=== PATIENT | female | born 1975 | race Caucasian/White ===

== ENCOUNTER 2022-11-08 09:35 | Day surgery (SDC) | payer BC ==
[2022-11-01 15:32] LABS: BASOPHILS % (AUTO) 0.3 % (0-1); EOSINOPHILS % (AUTO) 0.6 % (0-6); LYMPHOCYTES # (AUTO) 2.1 X10'3 (1.1-4.8); LYMPHOCYTES % (AUTO) 29.1 % (21-51); MEAN CORPUSCULAR HEMOGLOBIN 26.9 PG (27.0-31.0); MEAN CORPUSCULAR HGB CONC 33.8 g/dL (33.0-36.5); MEAN CORPUSCULAR VOLUME 79.6 FL (78-98); MEAN PLATELET VOLUME 9.1 FL (7.4-10.4); MONOCYTES # (AUTO) 0.5 X10'3 (0-0.9); MONOCYTES % (AUTO) 7.5 % (2-12); NEUTROPHILS # (AUTO) 4.6 X10'3 (1.8-7.7); NEUTROPHILS % (AUTO) 62.5 % (42-75); PRE OP HEMATOCRIT 45.6 % (35.0-45.0); PRE OP HEMOGLOBIN 15.4 g/dL (12.0-16.0); PRE OP PLATELET COUNT 243 X10'3 (140-440); RED BLOOD COUNT 5.74 X10'6 (4.20-5.60); RED CELL DISTRIBUTION WIDTH 13.4 % (11.5-14.5)
[2022-11-01 15:43] LABS: HCG SERUM QL NEGATIVE
[2022-11-01 15:53] LABS: ALBUMIN 3.9 G/DL (3.4-5.0); ALBUMIN/GLOBULIN RATIO 1.1 (1.1-1.5); ALKALINE PHOSPHATASE 59 IU/L (46-116); BLOOD UREA NITROGEN 24 MG/DL (7-18); BUN/CREATININE RATIO 20.7 (10.0-20.0); CALCIUM 9.3 MG/DL (8.5-10.1); CHLORIDE 104 MMOL/L (99-107); CREATININE 1.16 MG/DL (0.40-0.90); PRE OP ALT 19 U/L (30-65); PRE OP ANION GAP 10 (8-16); PRE OP AST 14 U/L (10-37); PRE OP BILIRUB, TOTAL 0.4 MG/DL (0.0-1.0); PRE OP GLUCOSE 120 MG/DL (70-104); PRE OP POTASSIUM 4.2 MMOL/L (3.4-5.1); PRE OP SODIUM 140 MMOL/L (135-145); TOTAL CARBON DIOXIDE 26.3 MMOL/L (24-32); TOTAL PROTEIN 7.3 G/DL (6.4-8.2); eGFR 50 ML/MIN
[2022-11-08] VITALS (13 sets, daily range): BP systolic 131–162; BP diastolic 82–98; PULSE 62–102; RESP 16–25; TEMP 97–97.7; O2SAT 62–100
[~2022-11-08] VITALS: Ht 175.3 cm; Wt 98.3 kg
[~2022-11-08 09:35] MED LIST: DAPA10TA PO; MEDR10TA10 PO; NORE0.3520 PO; TIRZ2.5P SQ; WARF-55 PO; famotidine 20mg tablet PO ONE; ringers solution, lacted 1,000 ML IV SCH
[2022-11-08 10:18] LABS: PREOP URINE HCG NEGATIVE (NEGATIVE)
[2022-11-08] MEDS ORDERED: acetaminophen 1,000mg/100ml IV 100 ML IV PRN ×2 (11:55)
[2022-11-08] MEDS ORDERED: hydrALAZINE 20mg/ml inj. IV PRN ×3 (11:55→14:25)
[2022-11-08] MEDS ORDERED: ondansetron/PF 4mg/2ml inj IV PRN ×3 (11:55→14:25)
[2022-11-08] MEDS ORDERED: fentaNYL/PF 50MCG/1 ML 2ML syringe IV PRN ×4 (11:55→14:25)
[2022-11-08] MEDS ORDERED: ringers solution, lacted 1,000 ML IV SCH ×3 (11:55→14:25)
[2022-11-08] MEDS ORDERED: meperidine/PF 25mg/ml syringe IV PRN ×8 (11:55→14:25)
[2022-11-08] MEDS ORDERED: labetalol 20mg/4ml (5mg/ml) syringe IV PRN ×3 (11:55→14:25)
[2022-11-08] MEDS ORDERED: proCHLORperazine 10 MG/2 ml inj IV PRN ×2 (11:55)
[2022-11-08] MEDS ORDERED: BUPIVAcaine/PF 2.5 mg/ml (0.25%) 30ml vial ONE (14:22)
[2022-11-08] MEDS ORDERED: propofol inj 20 ML IV ONE (14:31)
[2022-11-08] MEDS ORDERED: fentaNYL/PF 50MCG/1 ML 2ML syringe ONE ×2 (14:31→15:37)
[2022-11-08] MEDS ORDERED: midazolam 1 mg/ML 2ml injection ONE (14:31)
[2022-11-08] MEDS ORDERED: rocuronium 10mg/ml inj IV ONE (14:31)
[2022-11-08] MEDS ORDERED: sevoflurane 250ml liquid IH ONE (14:31)
[2022-11-08] MEDS ORDERED: LIDOcaine 2% (20mg/ml) 5ml vial ONE (14:31)
[2022-11-08] MEDS ORDERED: ondansetron/PF 4mg/2ml inj ONE (14:32)
[2022-11-08] MEDS ORDERED: glycopyrrolate 0.2mg/ml inj ONE (14:32)
[2022-11-08] MEDS ORDERED: neostigmine methylsulfate 1 MG/ML 10ml vial ONE (14:32)
[2022-11-08] MEDS ORDERED: dexamethasone sod phosphate 4mg/ml inj. ONE (14:32)
--- NOTE | 2022-11-08 15:56 | NUR ---
Received from OR via [facility], accompanied by Anesthesiologist LUKE and report given by Anesthesiolgist. PATIENT ON 10L MASK WITH SPO2 100%. 20 G L AC RUNNING NS @ 100ML/HR. 3 ABD LAP SITES STERISTRIPS, TELFA, AND TEGADERM ALL CDI. SCD'S ARE ON. PATIENT C/O PAIN, WILL HANG TYLENOL AND REASSESS. WILL CONTINUE TO MONITOR.
[2022-11-08] MEDS ORDERED: oxyCODONE IR 5mg (immed. release) tablet PO ONE (17:20)
--- NOTE | 2022-11-08 17:20 | NUR ---
PER CHIN CORDOBA TO GIVE 1 TIME DOSE OF OXYCODONE 5MG PO FOR RIDE HOME.
--- NOTE | 2022-11-08 17:46 | NUR ---
PATIENT STABLE FOR D/C PER MD ORDERS. ALL D/C PPWK WAS REV'D AND ANY QUESTIONS, COMMENTS, AND CONCERNS WERE ANSWERED AT THIS TIME WITH PATIENT AND SHE VERBALIZED UNDERSTANDING. PATIENT IS ABLE TO SAFELY AMBULATE AND TRANSFER SELF TO W/C. 3 ABD LAP SITES DRESSINGS CDI. IV TAKEN OUT WITHOUT ANY COMPLICATIONS. PATIENT WAS TRANSFERRED TO PRIVATE VEHICLE WITHOUT INCIDENT. FAMILY DRIVING HOME. ALL PERSONAL BELONGINGS WERE SENT WITH PATIENT.
== END 2022-11-08 17:46 | disposition home or self-care (01) ==
LOC: PAS 09:35
PROVIDERS: ATTEND Obstetrics & Gynecology
DX: Z30.2 Encounter for sterilization (principal); N92.0 Excessive and frequent menstruation with regular cycle; E11.9 Type 2 diabetes mellitus without complications; E66.9 Obesity, unspecified; Z68.31 Body mass index [BMI] 31.0-31.9, adult; I10 Essential (primary) hypertension; F41.9 Anxiety disorder, unspecified; F32.A Depression, unspecified; D68.51 Activated protein C resistance; Z72.89 Other problems related to lifestyle; Z79.899 Other long term (current) drug therapy; Z79.84 Long term (current) use of oral hypoglycemic drugs; Z98.890 Other specified postprocedural states; Z88.5 Allergy status to narcotic agent; Z83.2 Family history of diseases of the blood and blood-forming organs and certain disorders involving the immune mechanism; Z83.3 Family history of diabetes mellitus
CPT/HCPCS: 36415; 58563; 58670; 80053; 81025; 82948; 84703; 85025; 86885; 86900; 86901; A6258; J0131; J1100; J2250; J2405; J2704; J2710; J3010; J3490; J7030; J7040; J7120; Z7506; Z7508; Z7512; A4355; A4618; A4649; A6250